=== PATIENT | male | born 1980 | race Caucasian/White ===

== ENCOUNTER 2018-12-06 22:37 | Emergency (ER) | payer MEDICAID, OTHER ==
--- NOTE | 2018-12-06 22:44 | EDPHY ---
H & P Source: Patient, Police - Medical/Surgical History Hx Asthma: No Hx Chronic Respiratory Disease: No Hx Diabetes: No Hx Cardiac Disease: No Hx Renal Disease: No Hx Cirrhosis: No Hx Alcoholism: Yes Hx HIV/AIDS: No Hx Splenectomy or Spleen Trauma: No Other PMH: pmh: TBI. PSH: hernia; t&A; - Social History Smoking Status: Light smoker Time Seen by Provider: 12/07/18 06:41 HPI/ROS: HPI CHIEF COMPLAINT: Suicidal ideation, M1 hold by police. HISTORY OF PRESENT ILLNESS: This patient is a 38-year-old male, history of depression and suicidal attempts in the past with pill overdose, presents emergency room on M1 hold by police. The police were contacted to his private residence after he made suicidal statements to his neighbor. He has been drinking alcohol this evening. Reports multiple shots. He recently lost his job. Additionally is the anniversary of his mom's per the patient he states to me that she 4 years ago today. He stated to police 2 years ago today Past Medical History: Depression. Previous suicidal ideation suicide attempts. Past Surgical History: No recent surgical history Social History: Drinks alcohol. Smokes tobacco. Lives locally. Family History: Noncontributory ROS REVIEW OF SYSTEMS: 10 Systems were reviewed and negative with the exception of the elements mentioned in the history of present illness. Exam Constitutional intoxicated, smells of alcohol triage nursing summary reviewed, vital signs reviewed, awake/alert. Eyes normal conjunctivae and sclera, EOMI, PERRLA. HENT normal inspection, atraumatic, moist mucus membranes, no epistaxis, neck supple/ no meningismus, no raccoon eyes. Respiratory clear to auscultation bilaterally, normal breath sounds, no respiratory distress, no wheezing. Cardiovascular rate normal, regular rhythm, no murmur, no edema, distal pulses normal. Gastrointestinal soft, non-tender, no rebound, no guarding, normal bowel sounds, no distension, no pulsatile mass. Genitourinary no CVA tenderness. Musculoskeletal no midline vertebral tenderness, full range of motion, no calf swelling, no tenderness of extremities, no meningismus, good pulses, neurovascularly intact. Skin pink, warm, & dry, no rash, skin atraumatic. Neurologic awake, alert and oriented x 3, AAOx3, moves all 4 extremities equally, motor intact, sensory intact, CN II-XII intact, normal cerebellar, normal vision, normal speech. Psychiatric flat affect, depressed, suicidal Heme/Lymphnopathy. Differential Diagnosis: Includes but is not limited to in a particular order depression, underlying mental illness, bipolar disorder, suicidal ideation, substance abuse Medical Decision Making: Plan for this patient he is on M1 hold by police. Patient need medical clearance 1st and then mental health evaluation once sober. Re-evaluation: 0641AM: Patient here on M1 hold. Patient suicidal. Intoxicated with alcohol level 430. He has slowly sobering his alcohol levels around 200 at this time. He needs mental health evaluation due to depression and suicidal ideation. He signed over to Dr. Miller at 7:00 a.m.. (Ronan Diana) Constitutional: Initial Vital Signs Temperature (C) 36.2 C 12/06/18 22:40 Heart Rate 82 12/06/18 22:40 Respiratory Rate 16 12/06/18 22:40 Blood Pressure 138/92 H 12/06/18 22:40 O2 Sat (%) 92 12/06/18 22:40 O2 Delivery Mode Room Air Allergies/Adverse Reactions: Penicillins Allergy (Verified 12/06/18 22:45) venom-honey bee [bee venom (honey bee)] Allergy (Verified 12/06/18 22:45) Home Medications: Medication Instructions Recorded NK [No Known Home Meds] 12/06/18 Medical Decision Making ED Course/Re-evaluation: 0 700: Patient is signed out to me at change of shift. The patient is awaiting psychiatric evaluation. Patient has no complaints at this time. When I went and evaluated the patient, he is resting comfortably in the bed. Rechecked the patient while here. He was stable. Patient was evaluated by [facility]. They lifted the patient's hold. They felt the patient could be discharged to the [facility] for alcohol withdrawal. Patient was given a dose of Librium in the emergency department. He was given a prepack and sent to the [facility] by cab. (Evelyn Miller) - Data Points Laboratory Results: Laboratory Results 12/06/18 23:06 12/06/18 23:06 Departure - Departure Disposition: Home, Routine, Self-Care Clinical Impression: Severe major depression, Alcohol intoxication Condition: Fair Instructions: Depression (ED), Alcohol Intoxication (ED) Additional Instructions: Return with increasing the complaints or any other concerns. Referrals: [facility],. [Clinic] - 2-3 days without fail
[2018-12-06 23:31] LABS: PLATELET COUNT 167 10^3/uL (150-400)
[2018-12-07] MEDS ORDERED: chlordiazePOXIDE 25 MG CAP PO ONE ×2 (13:33→13:43)
[2018-12-07] MEDS ORDERED: CHLORDIAZEPOXIDE 25MG PREPK#6 BTL TAKEHOME ONE (13:34)
[2018-12-07 13:55] VITALS: BP 136/104
--- NOTE | 2018-12-07 14:29 | ASMTTCLDSP ---
TLC Discharge Disposition Disposition: Answers: Discharge If Answers: Yes DISCHARGED: Patient/family given suicide hotline info & SAMHSA brochure? Disposition Notes: Notes: In consultation with [facility] ED physician, Evelyn Miller MD, contact lens inspector psychiatrist Dr. Anup Parrish MD it was concurred that pt does not appear to meet 27-65 criteria requiring psychiatric hospitalization as pt does not appear to be an imminent risk of harm to self, others, gravely disabled due to a mental illness condition. Discharge Concerns/Recommendations: Notes: Pt was DC'd to the [facility] to detox and will follow up with Mental Health Treatment with Medicaid. PT's sister was included in the safety plan and once PT Detoxes they will attempt to relocate PT back to [place] to be around family support systems. Was patient given the Answers: Not applicable Inpatient Behavioral Health Prohibited Belongings List while in the ED? Psychiatrist vacating M1 Anup Parrish MD Hold: Date and time M1 hold 12/07/2018 01:09 PM vacated (time format is hh:mm): Type of Hold: Answers: M1/72-hour Hold Hold initiated by: Answers: Police Date Signed: 12/07/2018 02:28 PM Electronically Signed By:Juan Carlos Jose
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
== END 2018-12-07 14:06 | disposition home or self-care (01) ==
LOC: EDUNIT# → EEVIPCON 22:37
PROC: GZ11ZZZ Psychological Tests, Personality and Behavioral (ICD-10-PCS; principal; 2018-12-06)
DX: F32.9 Major depressive disorder, single episode, unspecified (principal); F10.920 Alcohol use, unspecified with intoxication, uncomplicated
CPT/HCPCS: 80305; G0480